=== PATIENT | male | born 1960 | race Caucasian/White ===

== ENCOUNTER 2016-12-03 12:49 | Inpatient (IN) | payer OTHER ==
[~2016-12-03] VITALS: Ht 177.8 cm; Wt 89.4 kg
[~2016-12-03 12:49] MED LIST: FURO40 PO; LACT30L PO; NEOM500T PO; PROP10TA73 PO; SPIR25 PO
[2016-12-03] MEDS ORDERED: PROP10TA73 PO (12:58)
[2016-12-03] MEDS ORDERED: ESOM20CA31 PO (12:58)
[2016-12-03] MEDS ORDERED: CLON.2 PO (12:58)
[2016-12-03] MEDS ORDERED: LACT30L PO (12:58)
[2016-12-03] MEDS ORDERED: RIFAX550 PO (12:58)
[2016-12-03 14:31] LABS: APPEARANCE,URINE CLOUDY (CLEAR); GLUCOSE, URINE (UA) NEGATIVE (NEGATIVE); KETONES,URINE 15 mg/dL (NEGATIVE); LEUKOCYTE ESTERASE ,URINE SMALL (NEGATIVE); OCCULT BLOOD,URINE MODERATE (NEGATIVE); PH,URINE 6.5 (5.0-8.0); PROTEIN,URINE TRACE (NEGATIVE)
[2016-12-03 14:37] LABS: SQUAMOUS EPITHELIAL CELL,UR Few /LPF (None Seen)
[2016-12-03] MEDS ORDERED: SODIUM CHLORIDE 0.9% 1,000 ML IV ONE (14:45)
[2016-12-03 15:44] LABS: AMMONIA 120 umol/L (11-32); TROPONIN I < 0.02 ng/mL (0.00-0.05)
[2016-12-03 15:54] LABS: ANION GAP 10 mmol/L (8-16); CALCIUM, TOTAL 7.8 mg/dL (8.8-10.5); CARBON DIOXIDE 20 mmol/L (22-29); CHLORIDE 110 mmol/L (98-107); CREATININE 0.82 mg/dL (0.60-1.30); GLOMERULAR FILTR. RATE CALC > 60 mL/min (>60); POTASSIUM 4.5 mmol/L (3.5-5.1); SODIUM SERUM 140 mmol/L (136-145); UREA NITROGEN, BLOOD 7 mg/dL (7-18)
[2016-12-03 16:02] LABS: ALANINE AMINOTRANSFERASE 56 U/L (12-78); ALBUMIN 2.2 g/dL (3.4-5.0); ASPARTATE AMINOTRANSFERASE 110 U/L (15-37); BILIRUBIN,TOTAL 4.3 mg/dL (0.1-1.0); CREATINE KINASE, TOTAL 488 U/L (39-308); TOTAL PROTEIN, SERUM 5.9 g/dL (6.4-8.2)
[2016-12-03 16:06] LABS: BASOPHILS % (AUTO) 0.1 % (0.0-2.0); EOSINOPHILS % (AUTO) 0.2 % (1.0-6.0); HEMATOCRIT 37.5 % (41-53); HEMOGLOBIN 12.8 g/dL (13.5-17.5); LYMPHOCYTES # (AUTO) 0.5 K/uL (1.0-4.8); MEAN CORPUSCULAR HEMOGLOBIN 33.9 pg (26.0-34.0); MEAN CORPUSCULAR HGB CONC 34.1 G/dL (31.0-37.0); MEAN CORPUSCULAR VOLUME 99 fL (80-100); MONOCYTES # (AUTO) 0.7 K/uL (0.1-1.0); MONOCYTES % (AUTO) 7.4 % (2.0-9.0); RED BLOOD CELL COUNT(AUTO) 3.77 MIL/uL (4.50-5.90); WHITE BLOOD COUNT (AUTO) 9.2 K/uL (4.5-11.0)
[2016-12-03 16:09] LABS: NEUTROPHILS % (AUTO) 87.3 % (40.0-70.0)
[2016-12-03 16:37] LABS: CREATINE KINASE MB 3.1 ng/mL (0-5)
[2016-12-03 16:38] LABS: PLATELET COUNT (AUTO) 88 K/uL (150-450); RBC MORPHOLOGY COMMENT ABNORMAL RBC MORPH
[2016-12-03] MEDS ORDERED: ACETAMINOPHEN 325 MG TABLET PO PRN (17:15)
[2016-12-03] MEDS ORDERED: 0.9% SODIUM CHLORIDE 10 ML SYRINGE IVP PRN (17:15)
[2016-12-03] MEDS ORDERED: LACTULOSE 200 GM/300 ML RECTAL SOLUTION PR ONE (17:15)
[2016-12-03] MEDS ORDERED: ONDANSETRON HCL 4 MG/2 ML VIAL IVP PRN (17:15)
[2016-12-03] MEDS ORDERED: LACTULOSE 20 GM/30 ML SOLUTION UDCUP PO ONE (17:30)
[2016-12-03] MEDS ORDERED: CloNIDine HCL 0.1 MG TABLET PO PRN (19:15)
[2016-12-03] MEDS ORDERED: LACTULOSE 200 GM/300 ML RECTAL SOLUTION PR SCH (19:15)
[2016-12-03] MEDS ORDERED: ALBUTEROL SULFATE 2.5 MG/0.5 ML NEB SOLUTION NEB PRN (19:15)
[2016-12-03 20:01] LABS: INR 1.7 (0.9-1.1); PROTHROMBIN TIME 17.6 SEC (9.4-11.6)
[2016-12-03 20:31] VITALS: BP 137/91
[2016-12-03] MEDS ORDERED: SODIUM CHLORIDE 0.9% 100 ML ONE (21:54)
[2016-12-03] MEDS ORDERED: SODIUM CHLORIDE 0.9% 0 ML ONE (21:59)
[2016-12-03] MEDS: DOCUSATE SODIUM 100 MG CAPSULE PO SCH (22:06)
[2016-12-03] MEDS: CefTRIAXone 1 GM/DEXTROSE 50 ML IV SCH (22:07)
[2016-12-03 23:36] VITALS: BP 160/82
[2016-12-03] MEDS: LACTULOSE 20 GM/30 ML SOLUTION UDCUP PO SCH (23:43)
[2016-12-04 03:51] VITALS: BP 140/71
[2016-12-04] MEDS: ACETAMINOPHEN 325 MG TABLET PO PRN ×2 (05:49→16:38)
[2016-12-04 06:24] LABS: EOSINOPHILS % (AUTO) 0.7 % (1.0-6.0); HEMOGLOBIN 12.2 g/dL (13.5-17.5); LYMPHOCYTES % (AUTO) 14.2 % (22.0-44.0); MEAN CORPUSCULAR HGB CONC 33.9 G/dL (31.0-37.0); MEAN CORPUSCULAR VOLUME 100 fL (80-100); MONOCYTES # (AUTO) 0.9 K/uL (0.1-1.0); MONOCYTES % (AUTO) 12.2 % (2.0-9.0); NEUTROPHILS # (AUTO) 5.2 K/uL (1.8-7.7); NEUTROPHILS % (AUTO) 72.9 % (40.0-70.0); PLATELET COUNT (AUTO) 88 K/uL (150-450); WHITE BLOOD COUNT (AUTO) 7.1 K/uL (4.5-11.0)
[2016-12-04 07:03] LABS: ALANINE AMINOTRANSFERASE 44 U/L (12-78); ALBUMIN 1.7 g/dL (3.4-5.0); ANION GAP 8 mmol/L (8-16); ASPARTATE AMINOTRANSFERASE 87 U/L (15-37); BILIRUBIN,TOTAL 3.5 mg/dL (0.1-1.0); CALCIUM, TOTAL 7.3 mg/dL (8.8-10.5); CARBON DIOXIDE 22 mmol/L (22-29); CHLORIDE 113 mmol/L (98-107); GLOMERULAR FILTR. RATE CALC > 60 mL/min (>60); POTASSIUM 3.5 mmol/L (3.5-5.1); SODIUM SERUM 143 mmol/L (136-145); TOTAL PROTEIN, SERUM 4.6 g/dL (6.4-8.2); UREA NITROGEN, BLOOD 6 mg/dL (7-18)
[2016-12-04 07:21] VITALS: BP 147/93
[2016-12-04] MEDS: PANTOPRAZOLE SODIUM 40 MG DR TABLET PO SCH (09:17)
[2016-12-04] MEDS: LACTULOSE 20 GM/30 ML SOLUTION UDCUP PO SCH ×3 (09:17→23:42)
[2016-12-04] MEDS: DOCUSATE SODIUM 100 MG CAPSULE PO SCH ×2 (09:17→21:07)
[2016-12-04 09:54] LABS: RBC MORPHOLOGY COMMENT ABNORMAL RBC MORPH
[2016-12-04 11:36] VITALS: BP 137/89
[2016-12-04 16:22] VITALS: BP 143/91
[2016-12-04 19:46] VITALS: BP 147/82
[2016-12-04] MEDS ORDERED: SODIUM CHLORIDE 0.9% 250 ML IV ONE (21:05)
[2016-12-04] MEDS: CefTRIAXone 1 GM/DEXTROSE 50 ML IV SCH (21:07)
[2016-12-04] MEDS: RIFAXIMIN 550 MG TABLET PO SCH (21:07)
[2016-12-04 23:45] VITALS: BP 148/87
[2016-12-05] MEDS ORDERED: VANCOMYCIN HCL 1.5 GM in DEXTROSE 5%-WATER 250 ML IV ONE (00:30)
[2016-12-05] MEDS ORDERED: VANCOMYCIN HCL 1 GM/D5% WATER 200 ML IV ONE (00:30)
[2016-12-05 04:54] VITALS: BP 157/80
[2016-12-05] MEDS ORDERED: VANCOMYCIN HCL 750 MG in DEXTROSE 5%-WATER 150 ML IV ONE (05:00)
[2016-12-05 06:47] LABS: ANION GAP 6 mmol/L (8-16); CALCIUM, TOTAL 7.4 mg/dL (8.8-10.5); CARBON DIOXIDE 25 mmol/L (22-29); CHLORIDE 111 mmol/L (98-107); CREATININE 0.96 mg/dL (0.60-1.30); GLOMERULAR FILTR. RATE CALC > 60 mL/min (>60); POTASSIUM 3.2 mmol/L (3.5-5.1); SODIUM SERUM 142 mmol/L (136-145); UREA NITROGEN, BLOOD 6 mg/dL (7-18)
[2016-12-05 07:56] VITALS: BP 152/83
[2016-12-05] MEDS ORDERED: VANCOMYCIN HCL 1.5 GM in DEXTROSE 5%-WATER 250 ML IV SCH ×2 (08:00→20:00)
[2016-12-05] MEDS: RIFAXIMIN 550 MG TABLET PO SCH (08:13)
[2016-12-05] MEDS: PANTOPRAZOLE SODIUM 40 MG DR TABLET PO SCH (08:13)
[2016-12-05] MEDS: LACTULOSE 20 GM/30 ML SOLUTION UDCUP PO SCH (08:13)
[2016-12-05] MEDS: DOCUSATE SODIUM 100 MG CAPSULE PO SCH (08:15)
[2016-12-05 11:18] LABS: GLUCOSE,POINT OF CARE 95 MG/DL (70-110)
[2016-12-05 11:21] VITALS: BP 150/96
[2016-12-05] MEDS ORDERED: POTASSIUM CHLORIDE 20 MEQ ER TABLET PO ONE (13:15)
== END 2016-12-05 13:45 | disposition left against medical advice (07) | DRG 279 ==
LOC: EDBD 12:56 → EMS 12:56 → 5S 18:08 → 6N 12-04 18:40
PROVIDERS: ADMIT Internal Medicine; ATTEND Internal Medicine
PROC: 05HM33Z Insertion of Infusion Device into Right Internal Jugular Vein, Percutaneous Approach (ICD-10-PCS; principal; 2016-12-03)
DX: K72.90 Hepatic failure, unspecified without coma (principal); E43 Unspecified severe protein-calorie malnutrition; D68.9 Coagulation defect, unspecified; D69.6 Thrombocytopenia, unspecified; K74.60 Unspecified cirrhosis of liver; F19.10 Other psychoactive substance abuse, uncomplicated; F17.210 Nicotine dependence, cigarettes, uncomplicated; Z71.6 Tobacco abuse counseling; Z71.51 Drug abuse counseling and surveillance of drug abuser; Z91.19 Patient's noncompliance with other medical treatment and regimen; Z79.899 Other long term (current) drug therapy; Z68.28 Body mass index [BMI] 28.0-28.9, adult
CPT/HCPCS: 36556; 51702; 70450; 82962; 83605; 87040; 87086; 93005; 93306; 99285; G0480; J0696; J2405; J3370; J7030; J7050; J7060

== ENCOUNTER 2017-01-23 04:23 | Inpatient (IN) | payer OTHER ==
[~2017-01-23] VITALS: Ht 172.7 cm; Wt 97.8 kg
[~2017-01-23 04:23] MED LIST changes: +CLON.2 PO; +ESOM20CA31 PO; +RIFAX550 PO
[2017-01-23 06:45] LABS: BASOPHILS % (AUTO) 1.2 % (0.0-2.0); EOSINOPHILS % (AUTO) 3.8 % (1.0-6.0); HEMATOCRIT 35.9 % (41-53); HEMOGLOBIN 12.4 g/dL (13.5-17.5); LYMPHOCYTES % (AUTO) 27.6 % (22.0-44.0); MEAN CORPUSCULAR HEMOGLOBIN 34.2 pg (26.0-34.0); MEAN CORPUSCULAR HGB CONC 34.4 G/dL (31.0-37.0); MEAN CORPUSCULAR VOLUME 99 fL (80-100); MONOCYTES # (AUTO) 0.8 K/uL (0.1-1.0); NEUTROPHILS % (AUTO) 56.4 % (40.0-70.0); PLATELET COUNT (AUTO) 114 K/uL (150-450); RED BLOOD CELL COUNT(AUTO) 3.62 MIL/uL (4.50-5.90); RED CELL DISTRIBUTION WIDTH 18.4 % (11.5-14.5); WHITE BLOOD COUNT (AUTO) 7.2 K/uL (4.5-11.0)
[2017-01-23 06:47] LABS: RBC MORPHOLOGY COMMENT ABNORMAL RBC MORPH
[2017-01-23 06:50] LABS: ANION GAP 9 mmol/L (8-16); CALCIUM, TOTAL 7.7 mg/dL (8.8-10.5); CARBON DIOXIDE 20 mmol/L (22-29); CHLORIDE 113 mmol/L (98-107); CREATININE 0.96 mg/dL (0.60-1.30); GLOMERULAR FILTR. RATE CALC > 60 mL/min (>60); POTASSIUM 3.6 mmol/L (3.5-5.1); SODIUM SERUM 142 mmol/L (136-145); UREA NITROGEN, BLOOD 6 mg/dL (7-18)
[2017-01-23 06:58] LABS: ALANINE AMINOTRANSFERASE 61 U/L (12-78); ALBUMIN 1.8 g/dL (3.4-5.0); ASPARTATE AMINOTRANSFERASE 95 U/L (15-37); BILIRUBIN,TOTAL 2.6 mg/dL (0.1-1.0); TOTAL PROTEIN, SERUM 5.4 g/dL (6.4-8.2); TROPONIN I 0.03 ng/mL (0.00-0.05)
[2017-01-23 07:32] LABS: INR 1.5 (0.9-1.1); PROTHROMBIN TIME 16.1 SEC (9.4-11.6)
[2017-01-23] MEDS ORDERED: LACTULOSE 20 GM/30 ML SOLUTION UDCUP PO ONE (08:00)
[2017-01-23] MEDS ORDERED: 0.9% SODIUM CHLORIDE 10 ML SYRINGE IVP PRN (08:30)
[2017-01-23] MEDS ORDERED: ONDANSETRON HCL 4 MG/2 ML VIAL IVP PRN ×2 (08:30→23:30)
[2017-01-23] MEDS ORDERED: ACETAMINOPHEN 325 MG TABLET PO PRN ×2 (08:30→23:30)
[2017-01-23 09:37] VITALS: BP 129/90
[2017-01-23 11:11] VITALS: BP 151/89
[2017-01-23 15:19] VITALS: BP 161/99
[2017-01-23] MEDS ORDERED: PNEUMOCOCCAL VACCINE POLYVALENT 0.5 ML VIAL [PPSV23] IM ONE (17:15)
[2017-01-23] MEDS ORDERED: INFLUENZA VIRUS VACCINE QVS 2017-18 (3YR+)/PF 60 MCG/0.5 ML SYRINGE IM ONE (17:15)
[2017-01-23 19:52] VITALS: BP 159/92
[2017-01-23] MEDS ORDERED: MAGNESIUM HYDROXIDE SUSPENSION 30 ML UDCUP PO PRN (23:30)
[2017-01-23] MEDS ORDERED: BISACODYL 10 MG RECTAL RECTAL SUPPOSITORY PR PRN (23:30)
[2017-01-23] MEDS ORDERED: ZOLPIDEM TARTRATE 5 MG TABLET PO PRN (23:30)
[2017-01-23] MEDS ORDERED: MORPHINE SULFATE 2 MG/ML SYRINGE IVP PRN (23:30)
[2017-01-23] MEDS ORDERED: ALBUTEROL SULFATE 2.5 MG/0.5 ML NEB SOLUTION NEB PRN (23:30)
[2017-01-23] MEDS ORDERED: IPRATROPIUM BROMIDE 0.5 MG/2.5 ML NEB SOLUTION NEB PRN (23:30)
[2017-01-23 23:44] VITALS: BP 135/68
[2017-01-24 04:22] LABS: APPEARANCE,URINE CLEAR (CLEAR); GLUCOSE, URINE (UA) NEGATIVE (NEGATIVE); KETONES,URINE NEGATIVE (NEGATIVE); LEUKOCYTE ESTERASE ,URINE NEGATIVE (NEGATIVE); OCCULT BLOOD,URINE TRACE (NEGATIVE); PROTEIN,URINE NEGATIVE (NEGATIVE)
[2017-01-24 04:24] LABS: ADD UA MICROSCOPIC YES
[2017-01-24 04:38] LABS: SQUAMOUS EPITHELIAL CELL,UR Few /LPF (None Seen)
[2017-01-24 05:08] VITALS: BP 136/89
[2017-01-24 07:19] VITALS: BP 136/72
[2017-01-24] MEDS: FUROSEMIDE 40 MG TABLET PO SCH (08:23)
[2017-01-24] MEDS: PANTOPRAZOLE SODIUM 40 MG/VIAL IVP SCH (08:24)
[2017-01-24] MEDS: SPIRONOLACTONE 25 MG TABLET PO SCH (08:24)
[2017-01-24] MEDS: DOCUSATE SODIUM 100 MG CAPSULE PO SCH ×2 (08:24→20:32)
[2017-01-24] MEDS: CloNIDine HCL 0.2 MG TABLET PO SCH ×2 (08:25→20:34)
[2017-01-24] MEDS: LACTULOSE 20 GM/30 ML SOLUTION UDCUP PO SCH ×4 (08:25→20:35)
[2017-01-24] MEDS: RIFAXIMIN 550 MG TABLET PO SCH ×2 (08:26→20:32)
[2017-01-24] MEDS: NEOMYCIN SULFATE 500 MG TABLET PO SCH ×3 (08:26→20:33)
[2017-01-24] MEDS: PROPRANOLOL HCL 10 MG TABLET PO SCH ×3 (08:27→20:34)
[2017-01-24 11:09] VITALS: BP 113/64
[2017-01-24 17:11] VITALS: BP 122/75
[2017-01-24 19:31] VITALS: BP 142/83
[2017-01-24] MEDS: HYDROCODONE/ACETAMINOPHEN 5-325 MG TABLET PO PRN (20:36)
[2017-01-25] VITALS (9 sets, daily range): BP systolic 100–139; BP diastolic 56–86
[2017-01-25] MEDS: CloNIDine HCL 0.2 MG TABLET PO SCH ×2 (07:56→21:01)
[2017-01-25] MEDS: PANTOPRAZOLE SODIUM 40 MG/VIAL IVP SCH (08:12)
[2017-01-25] MEDS: SPIRONOLACTONE 25 MG TABLET PO SCH (08:13)
[2017-01-25] MEDS: DOCUSATE SODIUM 100 MG CAPSULE PO SCH ×2 (08:14→21:00)
[2017-01-25] MEDS: LACTULOSE 20 GM/30 ML SOLUTION UDCUP PO SCH ×4 (08:14→21:01)
[2017-01-25] MEDS: RIFAXIMIN 550 MG TABLET PO SCH ×2 (08:14→21:02)
[2017-01-25] MEDS: FUROSEMIDE 40 MG TABLET PO SCH (08:14)
[2017-01-25] MEDS: PROPRANOLOL HCL 10 MG TABLET PO SCH ×3 (08:15→21:02)
[2017-01-25] MEDS: NEOMYCIN SULFATE 500 MG TABLET PO SCH ×3 (08:15→21:02)
[2017-01-25 10:02] LABS: BASOPHILS # (AUTO) 0.07 K/uL (0.00-0.20); BASOPHILS % (AUTO) 1.1 % (0.0-2.0); EOSINOPHILS # (AUTO) 0.27 K/uL (0.00-0.70); EOSINOPHILS % (AUTO) 4.28 % (1.0-6.0); HEMATOCRIT 33.9 % (41-53); HEMOGLOBIN 11.3 g/dL (13.5-17.5); LYMPHOCYTES # (AUTO) 1.8 K/uL (1.0-4.8); LYMPHOCYTES % (AUTO) 28.4 % (22.0-44.0); MEAN CORPUSCULAR HEMOGLOBIN 33.5 pg (26.0-34.0); MEAN CORPUSCULAR HGB CONC 33.3 G/dL (31.0-37.0); MEAN CORPUSCULAR VOLUME 100 fL (80-100); MONOCYTES % (AUTO) 15.9 % (2.0-9.0); NEUTROPHILS # (AUTO) 3.2 K/uL (1.8-7.7); NEUTROPHILS % (AUTO) 50.4 % (40.0-70.0); PLATELET COUNT (AUTO) 102 K/uL (150-450); RED BLOOD CELL COUNT(AUTO) 3.38 MIL/uL (4.50-5.90); RED CELL DISTRIBUTION WIDTH 18.3 % (11.5-14.5); WHITE BLOOD COUNT (AUTO) 6.3 K/uL (4.5-11.0)
[2017-01-25 10:14] LABS: ANION GAP 6 mmol/L (8-16); CALCIUM, TOTAL 7.8 mg/dL (8.8-10.5); CARBON DIOXIDE 24 mmol/L (22-29); CHLORIDE 110 mmol/L (98-107); GLOMERULAR FILTR. RATE CALC > 60 mL/min (>60); POTASSIUM 3.6 mmol/L (3.5-5.1); SODIUM SERUM 140 mmol/L (136-145); UREA NITROGEN, BLOOD 6 mg/dL (7-18)
[2017-01-25 10:20] LABS: ALANINE AMINOTRANSFERASE 50 U/L (12-78); ALBUMIN 1.5 g/dL (3.4-5.0); ASPARTATE AMINOTRANSFERASE 81 U/L (15-37); BILIRUBIN,TOTAL 2.5 mg/dL (0.1-1.0); TOTAL PROTEIN, SERUM 4.8 g/dL (6.4-8.2)
[2017-01-25 10:41] LABS: RBC MORPHOLOGY COMMENT ABNORMAL RBC MORPH
[2017-01-26 00:04] VITALS: BP 109/59
[2017-01-26 04:30] VITALS: BP 113/72
[2017-01-26 06:07] LABS: ALANINE AMINOTRANSFERASE 47 U/L (12-78); ALBUMIN 1.4 g/dL (3.4-5.0); ANION GAP 6 mmol/L (8-16); ASPARTATE AMINOTRANSFERASE 81 U/L (15-37); BILIRUBIN,TOTAL 2.3 mg/dL (0.1-1.0); CALCIUM, TOTAL 7.6 mg/dL (8.8-10.5); CARBON DIOXIDE 24 mmol/L (22-29); CHLORIDE 110 mmol/L (98-107); CREATININE 1.09 mg/dL (0.60-1.30); GLOMERULAR FILTR. RATE CALC > 60 mL/min (>60); POTASSIUM 3.8 mmol/L (3.5-5.1); SODIUM SERUM 140 mmol/L (136-145); TOTAL PROTEIN, SERUM 4.7 g/dL (6.4-8.2); UREA NITROGEN, BLOOD 6 mg/dL (7-18)
[2017-01-26 07:22] VITALS: BP 112/56
[2017-01-26] MEDS: RIFAXIMIN 550 MG TABLET PO SCH (08:15)
[2017-01-26] MEDS: NEOMYCIN SULFATE 500 MG TABLET PO SCH ×2 (08:15→15:49)
[2017-01-26] MEDS: DOCUSATE SODIUM 100 MG CAPSULE PO SCH (08:15)
[2017-01-26] MEDS: PANTOPRAZOLE SODIUM 40 MG/VIAL IVP SCH (08:16)
[2017-01-26] MEDS: LACTULOSE 20 GM/30 ML SOLUTION UDCUP PO SCH ×3 (08:16→15:50)
[2017-01-26] MEDS: SPIRONOLACTONE 25 MG TABLET PO SCH (08:16)
[2017-01-26] MEDS: PROPRANOLOL HCL 10 MG TABLET PO SCH ×2 (08:17→15:50)
[2017-01-26 09:28] LABS: BASOPHILS # (AUTO) 0.06 K/uL (0.00-0.20); BASOPHILS % (AUTO) 0.9 % (0.0-2.0); EOSINOPHILS # (AUTO) 0.31 K/uL (0.00-0.70); EOSINOPHILS % (AUTO) 5.07 % (1.0-6.0); HEMATOCRIT 33.4 % (41-53); HEMOGLOBIN 11.1 g/dL (13.5-17.5); LYMPHOCYTES # (AUTO) 1.6 K/uL (1.0-4.8); LYMPHOCYTES % (AUTO) 26.4 % (22.0-44.0); MEAN CORPUSCULAR HEMOGLOBIN 33.8 pg (26.0-34.0); MEAN CORPUSCULAR HGB CONC 33.3 G/dL (31.0-37.0); MEAN CORPUSCULAR VOLUME 101 fL (80-100); MONOCYTES # (AUTO) 0.9 K/uL (0.1-1.0); MONOCYTES % (AUTO) 14.8 % (2.0-9.0); NEUTROPHILS # (AUTO) 3.3 K/uL (1.8-7.7); NEUTROPHILS % (AUTO) 52.8 % (40.0-70.0); PLATELET COUNT (AUTO) 95 K/uL (150-450); RED CELL DISTRIBUTION WIDTH 19.3 % (11.5-14.5); WHITE BLOOD COUNT (AUTO) 6.2 K/uL (4.5-11.0)
[2017-01-26] MEDS: CloNIDine HCL 0.2 MG TABLET PO SCH (09:49)
[2017-01-26] MEDS: FUROSEMIDE 40 MG TABLET PO SCH (09:49)
[2017-01-26 09:50] VITALS: BP 130/67
[2017-01-26 11:08] VITALS: BP 117/68
[2017-01-26 15:24] VITALS: BP 122/66
[2017-01-26] MEDS: HYDROCODONE/ACETAMINOPHEN 5-325 MG TABLET PO PRN (15:50)
== END 2017-01-26 17:30 | disposition home or self-care (01) | DRG 279 ==
LOC: EMS 04:24 → 5S 08:30
PROVIDERS: ADMIT Hospitalist; ATTEND Hospitalist
DX: K72.90 Hepatic failure, unspecified without coma (principal); E43 Unspecified severe protein-calorie malnutrition; D69.6 Thrombocytopenia, unspecified; I10 Essential (primary) hypertension; K74.60 Unspecified cirrhosis of liver; F17.210 Nicotine dependence, cigarettes, uncomplicated; Z28.21 Immunization not carried out because of patient refusal
CPT/HCPCS: 93005; 99285; C9113; J2270

== ENCOUNTER 2017-03-02 01:18 | Inpatient (IN) | payer OTHER ==
[~2017-03-02] VITALS: Ht 172.7 cm; Wt 96.4 kg
[2017-03-02] MEDS ORDERED: BUMETANIDE 0.25 MG/ML 4 ML VIAL IVP ONE (04:00)
[2017-03-02 04:08] LABS: ANION GAP 3 mmol/L (8-16); CARBON DIOXIDE 28 mmol/L (22-29); CHLORIDE 107 mmol/L (98-107); CREATININE 0.93 mg/dL (0.60-1.30); GLOMERULAR FILTR. RATE CALC > 60 mL/min (>60); GLUCOSE,RANDOM 151 mg/dL (70-110); POTASSIUM 4.4 mmol/L (3.5-5.1); SODIUM SERUM 138 mmol/L (136-145); UREA NITROGEN, BLOOD 16 mg/dL (7-18)
[2017-03-02 04:14] LABS: ALANINE AMINOTRANSFERASE 68 U/L (12-78); ALBUMIN 1.3 g/dL (3.4-5.0); ALKALINE PHOSPHATASE 197 U/L (46-116); ASPARTATE AMINOTRANSFERASE 157 U/L (15-37); BILIRUBIN,TOTAL 1.8 mg/dL (0.1-1.0); TOTAL PROTEIN, SERUM 4.5 g/dL (6.4-8.2)
[2017-03-02 04:28] LABS: BASOPHILS # (AUTO) 0.05 K/uL (0.00-0.20); EOSINOPHILS % (AUTO) 5.44 % (1.0-6.0); HEMATOCRIT 29.2 % (41-53); HEMOGLOBIN 9.7 g/dL (13.5-17.5); LYMPHOCYTES # (AUTO) 1.8 K/uL (1.0-4.8); MEAN CORPUSCULAR HEMOGLOBIN 33.6 pg (26.0-34.0); MEAN CORPUSCULAR HGB CONC 33.2 G/dL (31.0-37.0); MEAN CORPUSCULAR VOLUME 101 fL (80-100); MONOCYTES # (AUTO) 0.7 K/uL (0.1-1.0); MONOCYTES % (AUTO) 13.4 % (2.0-9.0); NEUTROPHILS # (AUTO) 2.6 K/uL (1.8-7.7); NEUTROPHILS % (AUTO) 47.2 % (40.0-70.0); RED BLOOD CELL COUNT(AUTO) 2.88 MIL/uL (4.50-5.90); RED CELL DISTRIBUTION WIDTH 18.9 % (11.5-14.5)
[2017-03-02 04:40] LABS: INR 1.5 (0.9-1.1); PROTHROMBIN TIME 15.7 SEC (9.4-11.6)
[2017-03-02 04:52] LABS: TROPONIN I 0.03 ng/mL (0.00-0.05)
[2017-03-02 04:59] LABS: PLATELET COUNT (AUTO) 81 K/uL (150-450); PLATELET MORPHOLOGY COMMENT LARGE PLTS PRESENT
[2017-03-02] MEDS ORDERED: 0.9% SODIUM CHLORIDE 10 ML SYRINGE IVP PRN (06:30)
[2017-03-02] MEDS ORDERED: ACETAMINOPHEN 325 MG TABLET PO PRN (06:30)
[2017-03-02] MEDS ORDERED: MORPHINE SULFATE 4 MG/ML SYRINGE IVP PRN (06:30)
[2017-03-02] MEDS ORDERED: HYDROCODONE/ACETAMINOPHEN 5-325 MG TABLET PO PRN (06:30)
[2017-03-02] MEDS: LACTULOSE 20 GM/30 ML SOLUTION UDCUP PO SCH ×3 (07:40→21:03)
[2017-03-02 08:29] VITALS: BP 121/78
[2017-03-02] MEDS ORDERED: RIFAXIMIN 550 MG TABLET PO SCH (09:00)
[2017-03-02] MEDS ORDERED: SPIRONOLACTONE 50 MG TABLET PO SCH (09:00)
[2017-03-02] MEDS ORDERED: ENOXAPARIN SODIUM 40 MG/0.4 ML PF SYRINGE SQ SCH (09:00)
[2017-03-02] MEDS ORDERED: BUMETANIDE 0.25 MG/ML 4 ML VIAL IVP SCH (09:00)
[2017-03-02] MEDS ORDERED: PANTOPRAZOLE SODIUM 40 MG DR TABLET PO SCH (09:00)
[2017-03-02] MEDS ORDERED: CloNIDine HCL 0.1 MG TABLET PO SCH (09:00)
[2017-03-02] MEDS: PROPRANOLOL HCL 10 MG TABLET PO SCH ×3 (09:13→21:04)
[2017-03-02] MEDS: NEOMYCIN SULFATE 500 MG TABLET PO SCH ×3 (09:13→21:23)
[2017-03-02] MEDS ORDERED: INFLUENZA VIRUS VACCINE QVS 2017-18 (3YR+)/PF 60 MCG/0.5 ML SYRINGE IM ONE (11:00)
[2017-03-02 11:25] VITALS: BP 123/64
[2017-03-02 15:32] VITALS: BP 117/72
[2017-03-02 19:13] VITALS: BP 109/72
[2017-03-02] MEDS ORDERED: ONDANSETRON HCL 4 MG/2 ML VIAL IVP PRN (20:00)
[2017-03-02] MEDS: ALBUTEROL SULFATE 2.5 MG/0.5 ML NEB SOLUTION NEB SCH (21:00)
[2017-03-02] MEDS: IPRATROPIUM BROMIDE 0.5 MG/2.5 ML NEB SOLUTION NEB SCH (21:00)
[2017-03-02] MEDS: RIFAXIMIN 550 MG TABLET PO SCH (21:04)
[2017-03-02] MEDS: CloNIDine HCL 0.2 MG TABLET PO SCH (21:22)
[2017-03-02 23:14] VITALS: BP 114/72
[2017-03-03] MEDS: ALBUMIN HUMAN 25%-25GM/100ML 100 ML IV SCH (00:25)
[2017-03-03 05:12] VITALS: BP 100/59
[2017-03-03 07:06] VITALS: BP 107/70
[2017-03-03 07:57] LABS: BASOPHILS % (AUTO) 0.7 % (0.0-2.0); EOSINOPHILS % (AUTO) 4.6 % (1.0-6.0); HEMATOCRIT 28.6 % (41-53); HEMOGLOBIN 9.7 g/dL (13.5-17.5); LYMPHOCYTES # (AUTO) 1.5 K/uL (1.0-4.8); LYMPHOCYTES % (AUTO) 37.7 % (22.0-44.0); MEAN CORPUSCULAR HEMOGLOBIN 33.9 pg (26.0-34.0); MEAN CORPUSCULAR HGB CONC 33.8 G/dL (31.0-37.0); MEAN CORPUSCULAR VOLUME 100 fL (80-100); MONOCYTES # (AUTO) 0.7 K/uL (0.1-1.0); MONOCYTES % (AUTO) 16.5 % (2.0-9.0); NEUTROPHILS # (AUTO) 1.6 K/uL (1.8-7.7); NEUTROPHILS % (AUTO) 40.5 % (40.0-70.0); PLATELET COUNT (AUTO) 90 K/uL (150-450); RED BLOOD CELL COUNT(AUTO) 2.85 MIL/uL (4.50-5.90); RED CELL DISTRIBUTION WIDTH 19.3 % (11.5-14.5)
[2017-03-03 08:09] LABS: ALANINE AMINOTRANSFERASE 60 U/L (12-78); ALBUMIN 1.5 g/dL (3.4-5.0); ALKALINE PHOSPHATASE 205 U/L (46-116); ANION GAP 4 mmol/L (8-16); ASPARTATE AMINOTRANSFERASE 132 U/L (15-37); CALCIUM, TOTAL 7.2 mg/dL (8.8-10.5); CARBON DIOXIDE 27 mmol/L (22-29); CHLORIDE 108 mmol/L (98-107); CREATININE 0.88 mg/dL (0.60-1.30); GLOMERULAR FILTR. RATE CALC > 60 mL/min (>60); GLUCOSE,RANDOM 118 mg/dL (70-110); POTASSIUM 3.6 mmol/L (3.5-5.1); SODIUM SERUM 139 mmol/L (136-145); TOTAL PROTEIN, SERUM 4.5 g/dL (6.4-8.2); UREA NITROGEN, BLOOD 11 mg/dL (7-18)
[2017-03-03] MEDS: CloNIDine HCL 0.2 MG TABLET PO SCH ×2 (09:05→21:00)
[2017-03-03] MEDS: FUROSEMIDE 40 MG TABLET PO SCH (09:05)
[2017-03-03] MEDS: SPIRONOLACTONE 25 MG TABLET PO SCH (09:05)
[2017-03-03] MEDS: LACTULOSE 20 GM/30 ML SOLUTION UDCUP PO SCH ×3 (09:06→20:51)
[2017-03-03] MEDS: PROPRANOLOL HCL 10 MG TABLET PO SCH ×3 (09:06→20:51)
[2017-03-03] MEDS: PANTOPRAZOLE SODIUM 40 MG DR TABLET PO SCH (09:06)
[2017-03-03] MEDS: NEOMYCIN SULFATE 500 MG TABLET PO SCH ×3 (09:07→20:51)
[2017-03-03] MEDS: RIFAXIMIN 550 MG TABLET PO SCH ×2 (09:07→20:51)
[2017-03-03] MEDS: IPRATROPIUM BROMIDE 0.5 MG/2.5 ML NEB SOLUTION NEB SCH ×4 (10:47→19:45)
[2017-03-03] MEDS: ALBUTEROL SULFATE 2.5 MG/0.5 ML NEB SOLUTION NEB SCH ×4 (10:47→19:45)
[2017-03-03 12:01] VITALS: BP 106/63
[2017-03-03 16:35] VITALS: BP 102/56
[2017-03-03 19:50] VITALS: BP 110/68
[2017-03-03 23:47] VITALS: BP 107/61
[2017-03-04] MEDS ORDERED: SODIUM CHLORIDE 0.9% 250 ML IV ONE (00:36)
[2017-03-04] MEDS: ALBUMIN HUMAN 25%-25GM/100ML 100 ML IV SCH (00:58)
[2017-03-04 03:01] VITALS: BP 101/61
[2017-03-04 07:58] VITALS: BP 101/56
[2017-03-04] MEDS: ALBUTEROL SULFATE 2.5 MG/0.5 ML NEB SOLUTION NEB SCH ×4 (08:06→20:17)
[2017-03-04] MEDS: IPRATROPIUM BROMIDE 0.5 MG/2.5 ML NEB SOLUTION NEB SCH ×4 (08:06→20:17)
[2017-03-04] MEDS: LACTULOSE 20 GM/30 ML SOLUTION UDCUP PO SCH ×3 (08:15→20:56)
[2017-03-04] MEDS: SPIRONOLACTONE 25 MG TABLET PO SCH (08:15)
[2017-03-04] MEDS: PROPRANOLOL HCL 10 MG TABLET PO SCH ×3 (08:16→20:56)
[2017-03-04] MEDS: RIFAXIMIN 550 MG TABLET PO SCH ×2 (08:16→20:56)
[2017-03-04] MEDS: FUROSEMIDE 40 MG TABLET PO SCH (08:16)
[2017-03-04] MEDS: NEOMYCIN SULFATE 500 MG TABLET PO SCH ×3 (08:16→20:56)
[2017-03-04] MEDS: PANTOPRAZOLE SODIUM 40 MG DR TABLET PO SCH (08:16)
[2017-03-04] MEDS: CloNIDine HCL 0.2 MG TABLET PO SCH ×2 (08:16→21:00)
[2017-03-04 11:37] VITALS: BP 114/69
[2017-03-04 15:48] VITALS: BP 108/65
[2017-03-04 20:14] VITALS: BP 108/61
[2017-03-04 23:52] VITALS: BP 122/71
[2017-03-05] MEDS: ALBUMIN HUMAN 25%-25GM/100ML 100 ML IV SCH ×2 (01:14→23:41)
[2017-03-05 05:00] VITALS: BP 115/68
[2017-03-05] MEDS: LACTULOSE 20 GM/30 ML SOLUTION UDCUP PO SCH ×3 (07:58→20:06)
[2017-03-05] MEDS: RIFAXIMIN 550 MG TABLET PO SCH ×2 (07:58→20:06)
[2017-03-05] MEDS: NEOMYCIN SULFATE 500 MG TABLET PO SCH ×3 (07:58→20:06)
[2017-03-05] MEDS: CloNIDine HCL 0.2 MG TABLET PO SCH ×2 (07:59→20:06)
[2017-03-05] MEDS: FUROSEMIDE 40 MG TABLET PO SCH (07:59)
[2017-03-05] MEDS: PROPRANOLOL HCL 10 MG TABLET PO SCH ×3 (07:59→20:10)
[2017-03-05] MEDS: PANTOPRAZOLE SODIUM 40 MG DR TABLET PO SCH (07:59)
[2017-03-05 08:00] VITALS: BP 114/59
[2017-03-05] MEDS: SPIRONOLACTONE 25 MG TABLET PO SCH (08:01)
[2017-03-05] MEDS: ALBUTEROL SULFATE 2.5 MG/0.5 ML NEB SOLUTION NEB SCH ×4 (09:59→20:58)
[2017-03-05] MEDS: IPRATROPIUM BROMIDE 0.5 MG/2.5 ML NEB SOLUTION NEB SCH ×4 (09:59→20:58)
[2017-03-05 10:53] LABS: ANION GAP 6 mmol/L (8-16); CALCIUM, TOTAL 7.3 mg/dL (8.8-10.5); CARBON DIOXIDE 22 mmol/L (22-29); CHLORIDE 109 mmol/L (98-107); CREATININE 0.89 mg/dL (0.60-1.30); GLOMERULAR FILTR. RATE CALC > 60 mL/min (>60); GLUCOSE,RANDOM 138 mg/dL (70-110); POTASSIUM 4.1 mmol/L (3.5-5.1); SODIUM SERUM 137 mmol/L (136-145); UREA NITROGEN, BLOOD 12 mg/dL (7-18)
[2017-03-05 10:55] LABS: BASOPHILS % (AUTO) 0.6 % (0.0-2.0); EOSINOPHILS % (AUTO) 2.5 % (1.0-6.0); HEMATOCRIT 26.6 % (41-53); HEMOGLOBIN 8.9 g/dL (13.5-17.5); LYMPHOCYTES # (AUTO) 1.1 K/uL (1.0-4.8); LYMPHOCYTES % (AUTO) 31.2 % (22.0-44.0); MEAN CORPUSCULAR HGB CONC 33.4 G/dL (31.0-37.0); MEAN CORPUSCULAR VOLUME 102 fL (80-100); MONOCYTES # (AUTO) 0.6 K/uL (0.1-1.0); MONOCYTES % (AUTO) 18.6 % (2.0-9.0); NEUTROPHILS # (AUTO) 1.6 K/uL (1.8-7.7); NEUTROPHILS % (AUTO) 47.1 % (40.0-70.0); PLATELET COUNT (AUTO) 81 K/uL (150-450); RED BLOOD CELL COUNT(AUTO) 2.62 MIL/uL (4.50-5.90)
[2017-03-05 12:25] VITALS: BP 98/62
[2017-03-05 12:51] VITALS: BP 111/66
[2017-03-05 16:02] VITALS: BP 100/59
[2017-03-05 20:29] VITALS: BP 113/63
[2017-03-06 00:31] VITALS: BP 117/70
[2017-03-06 05:19] VITALS: BP 102/63
[2017-03-06 07:11] VITALS: BP 109/65
[2017-03-06] MEDS: ALBUTEROL SULFATE 2.5 MG/0.5 ML NEB SOLUTION NEB SCH ×3 (08:08→16:36)
[2017-03-06] MEDS: IPRATROPIUM BROMIDE 0.5 MG/2.5 ML NEB SOLUTION NEB SCH ×3 (08:08→16:36)
[2017-03-06] MEDS: LACTULOSE 20 GM/30 ML SOLUTION UDCUP PO SCH ×2 (08:43→16:12)
[2017-03-06] MEDS: RIFAXIMIN 550 MG TABLET PO SCH (08:43)
[2017-03-06] MEDS: PROPRANOLOL HCL 10 MG TABLET PO SCH ×2 (08:43→16:12)
[2017-03-06] MEDS: CloNIDine HCL 0.2 MG TABLET PO SCH (08:43)
[2017-03-06] MEDS: FUROSEMIDE 40 MG TABLET PO SCH (08:44)
[2017-03-06] MEDS: SPIRONOLACTONE 25 MG TABLET PO SCH (08:44)
[2017-03-06] MEDS: NEOMYCIN SULFATE 500 MG TABLET PO SCH ×2 (08:44→16:13)
[2017-03-06] MEDS: PANTOPRAZOLE SODIUM 40 MG DR TABLET PO SCH (08:44)
[2017-03-06 11:56] VITALS: BP 90/58
== END 2017-03-06 17:10 | disposition home or self-care (01) | DRG 280 ==
LOC: EMS 01:19 → 6N 05:00
PROVIDERS: ADMIT Internal Medicine; ATTEND Internal Medicine
PROC: 3E0234Z Introduction of Serum, Toxoid and Vaccine into Muscle, Percutaneous Approach (ICD-10-PCS; principal; 2017-03-02)
DX: K72.10 Chronic hepatic failure without coma (principal); K70.30 Alcoholic cirrhosis of liver without ascites; I42.9 Cardiomyopathy, unspecified; D69.59 Other secondary thrombocytopenia; I50.9 Heart failure, unspecified; E88.09 Other disorders of plasma-protein metabolism, not elsewhere classified; B19.20 Unspecified viral hepatitis C without hepatic coma; D63.8 Anemia in other chronic diseases classified elsewhere; F17.210 Nicotine dependence, cigarettes, uncomplicated; Z91.19 Patient's noncompliance with other medical treatment and regimen; Z23 Encounter for immunization; Z79.899 Other long term (current) drug therapy
CPT/HCPCS: 93005; 94640; 96374; 97161; 97165; 97530; 99285; J1650; J3490; J7050; P9046

== ENCOUNTER 2017-04-09 21:52 | Emergency (ER) | payer OTHER ==
[~2017-04-09] VITALS: Ht 172.7 cm; Wt 90.9 kg
[~2017-04-09 21:52] MED LIST changes: -CLON.2 PO; -NEOM500T PO; -RIFAX550 PO; -SPIR25 PO
[2017-04-09 22:13] LABS: GLUCOSE,POINT OF CARE 92 MG/DL (70-110)
[2017-04-09 23:07] LABS: BASOPHILS % (AUTO) 1.3 % (0.0-2.0); EOSINOPHILS % (AUTO) 7.1 % (1.0-6.0); HEMATOCRIT 35.2 % (41-53); HEMOGLOBIN 11.7 g/dL (13.5-17.5); LYMPHOCYTES # (AUTO) 1.9 K/uL (1.0-4.8); LYMPHOCYTES % (AUTO) 34.1 % (22.0-44.0); MEAN CORPUSCULAR HEMOGLOBIN 31.2 pg (26.0-34.0); MEAN CORPUSCULAR HGB CONC 33.3 G/dL (31.0-37.0); MEAN CORPUSCULAR VOLUME 94 fL (80-100); MONOCYTES # (AUTO) 0.5 K/uL (0.1-1.0); MONOCYTES % (AUTO) 9.4 % (2.0-9.0); NEUTROPHILS # (AUTO) 2.7 K/uL (1.8-7.7); NEUTROPHILS % (AUTO) 48.1 % (40.0-70.0); PLATELET COUNT (AUTO) 102 K/uL (150-450); RED BLOOD CELL COUNT(AUTO) 3.76 MIL/uL (4.50-5.90); RED CELL DISTRIBUTION WIDTH 18.6 % (11.5-14.5)
[2017-04-09 23:18] LABS: ANION GAP 9 mmol/L (8-16); CARBON DIOXIDE 19 mmol/L (22-29); CHLORIDE 113 mmol/L (98-107); CREATININE 0.84 mg/dL (0.60-1.30); GLOMERULAR FILTR. RATE CALC > 60 mL/min (>60); GLUCOSE,RANDOM 140 mg/dL (70-110); POTASSIUM 4.2 mmol/L (3.5-5.1); SODIUM SERUM 141 mmol/L (136-145); UREA NITROGEN, BLOOD 10 mg/dL (7-18)
[2017-04-09 23:19] LABS: INR 1.5 (0.9-1.1); PROTHROMBIN TIME 15.2 SEC (9.4-11.6)
[2017-04-09 23:27] LABS: TROPONIN I 0.02 ng/mL (0.00-0.05)
[2017-04-09 23:28] LABS: B-TYPE NATRIURETIC PEPTIDE 45 pg/mL (0-100)
[2017-04-09 23:42] LABS: ALANINE AMINOTRANSFERASE 63 U/L (12-78); ALKALINE PHOSPHATASE 352 U/L (46-116); ASPARTATE AMINOTRANSFERASE 98 U/L (15-37); BILIRUBIN,TOTAL 1.6 mg/dL (0.1-1.0); CREATINE KINASE MB 3.4 ng/mL (0-5); CREATINE KINASE, TOTAL 252 U/L (39-308); TOTAL PROTEIN, SERUM 5.7 g/dL (6.4-8.2)
[2017-04-10] MEDS ORDERED: LACTULOSE 20 GM/30 ML SOLUTION UDCUP PO ONE (00:15)
[2017-04-10 02:26] LABS: APPEARANCE,URINE CLEAR (CLEAR); BILIRUBIN,URINE NEGATIVE (NEGATIVE); GLUCOSE, URINE (UA) NEGATIVE (NEGATIVE); KETONES,URINE NEGATIVE (NEGATIVE); LEUKOCYTE ESTERASE ,URINE NEGATIVE (NEGATIVE); NITRATE,URINE NEGATIVE (NEGATIVE); OCCULT BLOOD,URINE NEGATIVE (NEGATIVE); PROTEIN,URINE NEGATIVE (NEGATIVE); UROBILINOGEN,URINE 0.2 mg/dL (<=1.0)
[2017-04-10 02:31] LABS: AMPHET/METH SCREEN,URINE POSITIVE (NEGATIVE); BARBITURATE SCREEN, URINE NEGATIVE (NEGATIVE); BENZODIAZEPINES SCREEN,URINE NEGATIVE (NEGATIVE); CANNABINOID SCREEN,URINE NEGATIVE (NEGATIVE); COCAINE SCREEN,URINE NEGATIVE (NEGATIVE); METHADONE SCREEN, URINE NEGATIVE (NEGATIVE); OPIATE SCREEN,URINE NEGATIVE (NEGATIVE)
[2017-04-10 02:42] LABS: PHENCYCLIDINE SCREEN,URINE NEGATIVE (NEGATIVE)
[2017-04-10 05:07] VITALS: BP 149/87
== END 2017-04-10 05:09 | disposition short-term general hospital (02) ==
LOC: EMS 21:53
DX: S02.40CA Maxillary fracture, right side, initial encounter for closed fracture (principal); S02.31XA Fracture of orbital floor, right side, initial encounter for closed fracture; K72.90 Hepatic failure, unspecified without coma; K70.30 Alcoholic cirrhosis of liver without ascites; R53.1 Weakness; F17.210 Nicotine dependence, cigarettes, uncomplicated; F14.10 Cocaine abuse, uncomplicated; F15.10 Other stimulant abuse, uncomplicated; I10 Essential (primary) hypertension; Z79.899 Other long term (current) drug therapy; Z59.0 Homelessness; W01.0XXA Fall on same level from slipping, tripping and stumbling without subsequent striking against object, initial encounter; Y93.89 Activity, other specified; Y92.89 Other specified places as the place of occurrence of the external cause; Y99.8 Other external cause status
CPT/HCPCS: 36415; 70450; 70486; 71045; 72125; 80053; 80307; 81003; 82140; 82550; 82553; 82962; 83880; 84484; 85025; 85610; 85730; 93005; 99285; G0480

== ENCOUNTER 2017-12-20 21:43 | Inpatient (IN) | payer OTHER ==
[~2017-12-20] VITALS: Ht 175.3 cm; Wt 87.4 kg
[~2017-12-20 21:43] MED LIST changes: +AMLO2.5T3 PO; +CHOL50004 PO; +CLON0.1T PO; -ESOM20CA31 PO; +LISI-660 PO; +OXYC10 PO; +PHYT5 PO; -PROP10TA73 PO; +RIFAX550 PO; +SPIR25 PO
[2017-12-20 22:13] LABS: GLUCOSE,POINT OF CARE 73 MG/DL (70-110)
[2017-12-20 23:12] LABS: BASOPHILS % (AUTO) 1.2 % (0.0-2.0); HEMATOCRIT 34.4 % (41-53); HEMOGLOBIN 11.5 g/dL (13.5-17.5); LYMPHOCYTES # (AUTO) 2.3 K/uL (1.0-4.8); LYMPHOCYTES % (AUTO) 41.3 % (22.0-44.0); MEAN CORPUSCULAR HEMOGLOBIN 30.1 pg (26.0-34.0); MEAN CORPUSCULAR HGB CONC 33.5 G/dL (31.0-37.0); MEAN CORPUSCULAR VOLUME 90 fL (80-100); MONOCYTES # (AUTO) 0.7 K/uL (0.1-1.0); NEUTROPHILS # (AUTO) 2.3 K/uL (1.8-7.7); NEUTROPHILS % (AUTO) 41.5 % (40.0-70.0); RED BLOOD CELL COUNT(AUTO) 3.83 MIL/uL (4.50-5.90)
[2017-12-20 23:22] LABS: INR 1.6 (0.9-1.1); PROTHROMBIN TIME 16.1 SEC (9.4-11.6)
[2017-12-20] MEDS ORDERED: BISACODYL 10 MG RECTAL RECTAL SUPPOSITORY PR PRN (23:30)
[2017-12-20] MEDS ORDERED: ZOLPIDEM TARTRATE 5 MG TABLET PO PRN (23:30)
[2017-12-20] MEDS ORDERED: HydrALAZINE HCL 20 MG/ML VIAL IVP PRN (23:30)
[2017-12-20] MEDS ORDERED: ONDANSETRON HCL 4 MG/2 ML VIAL IVP PRN (23:30)
[2017-12-20] MEDS ORDERED: ACETAMINOPHEN 325 MG TABLET PO PRN (23:30)
[2017-12-20] MEDS ORDERED: MAGNESIUM HYDROXIDE SUSPENSION 30 ML UDCUP PO PRN (23:30)
[2017-12-20 23:34] LABS: ANION GAP 6 mmol/L (8-16); CALCIUM, TOTAL 7.5 mg/dL (8.8-10.5); CARBON DIOXIDE 23 mmol/L (22-29); CHLORIDE 111 mmol/L (98-107); CREATININE 1.12 mg/dL (0.60-1.30); GLOMERULAR FILTR. RATE CALC > 60 mL/min (>60); GLUCOSE,RANDOM 96 mg/dL (70-110); POTASSIUM 3.4 mmol/L (3.5-5.1); SODIUM SERUM 140 mmol/L (136-145); UREA NITROGEN, BLOOD 7 mg/dL (7-18)
[2017-12-20 23:39] LABS: ALANINE AMINOTRANSFERASE 63 U/L (12-78); ALBUMIN 1.8 g/dL (3.4-5.0); ALKALINE PHOSPHATASE 217 U/L (46-116); ASPARTATE AMINOTRANSFERASE 99 U/L (15-37); BILIRUBIN,TOTAL 2.4 mg/dL (0.1-1.0); TOTAL PROTEIN, SERUM 5.5 g/dL (6.4-8.2)
[2017-12-20 23:43] LABS: PLATELET COUNT (AUTO) 94 K/uL (150-450)
[2017-12-20 23:44] LABS: PLATELET MORPHOLOGY COMMENT GIANT PLTS PRESENT
[2017-12-21] VITALS (7 sets, daily range): BP systolic 118–176; BP diastolic 67–102
[2017-12-21] MEDS: HEPARIN SODIUM,PORCINE 5,000 UNITS/ML VIAL SQ SCH ×4 (00:20→23:44)
[2017-12-21] MEDS ORDERED: LACTULOSE 20 GM/30 ML SOLUTION UDCUP PO ONE (00:30)
[2017-12-21] MEDS ORDERED: PNEUMOCOCCAL VACCINE POLYVALENT 0.5 ML VIAL [PPSV23] IM ONE (06:45)
[2017-12-21] MEDS: LISINOPRIL 5 MG TABLET PO SCH (08:43)
[2017-12-21] MEDS: SPIRONOLACTONE 25 MG TABLET PO SCH (08:44)
[2017-12-21] MEDS: PANTOPRAZOLE SODIUM 40 MG DR TABLET PO SCH (08:44)
[2017-12-21] MEDS: CloNIDine HCL 0.1 MG TABLET PO SCH ×3 (08:44→20:17)
[2017-12-21] MEDS: FUROSEMIDE 40 MG TABLET PO SCH (08:44)
[2017-12-21] MEDS: DOCUSATE SODIUM 100 MG CAPSULE PO SCH ×2 (08:44→20:17)
[2017-12-21] MEDS: AmLODIPine BESYLATE 2.5 MG TABLET PO SCH (08:45)
[2017-12-21] MEDS: RIFAXIMIN 550 MG TABLET PO SCH ×2 (08:45→20:17)
[2017-12-21] MEDS: CHOLECALCIFEROL (VIT D3) 5,000 UNITS CAPSULE PO SCH (08:45)
[2017-12-21] MEDS ORDERED: PHYTONADIONE 5 MG PO SCH (09:00)
[2017-12-21 10:20] LABS: ANION GAP 5 mmol/L (8-16); CALCIUM, TOTAL 7.2 mg/dL (8.8-10.5); CARBON DIOXIDE 23 mmol/L (22-29); CHLORIDE 113 mmol/L (98-107); CREATININE 0.82 mg/dL (0.60-1.30); GLOMERULAR FILTR. RATE CALC > 60 mL/min (>60); GLUCOSE,RANDOM 101 mg/dL (70-110); POTASSIUM 3.6 mmol/L (3.5-5.1); SODIUM SERUM 141 mmol/L (136-145); UREA NITROGEN, BLOOD 6 mg/dL (7-18)
[2017-12-21] MEDS: PHYTONADIONE 10 MG/1 ML AMP PO SCH (10:24)
[2017-12-21 12:24] LABS: APPEARANCE,URINE CLOUDY (CLEAR); BILIRUBIN,URINE NEGATIVE (NEGATIVE); GLUCOSE, URINE (UA) NEGATIVE (NEGATIVE); KETONES,URINE NEGATIVE (NEGATIVE); LEUKOCYTE ESTERASE ,URINE NEGATIVE (NEGATIVE); NITRATE,URINE NEGATIVE (NEGATIVE); OCCULT BLOOD,URINE NEGATIVE (NEGATIVE); PH,URINE 6.5 (5.0-8.0); PROTEIN,URINE NEGATIVE (NEGATIVE)
[2017-12-21 12:30] LABS: AMPHET/METH SCREEN,URINE POSITIVE (NEGATIVE); BARBITURATE SCREEN, URINE NEGATIVE (NEGATIVE); BENZODIAZEPINES SCREEN,URINE NEGATIVE (NEGATIVE); CANNABINOID SCREEN,URINE NEGATIVE (NEGATIVE); COCAINE SCREEN,URINE NEGATIVE (NEGATIVE); METHADONE SCREEN, URINE NEGATIVE (NEGATIVE); OPIATE SCREEN,URINE NEGATIVE (NEGATIVE)
[2017-12-21 12:31] LABS: PHENCYCLIDINE SCREEN,URINE NEGATIVE (NEGATIVE)
[2017-12-21 12:33] LABS: AMORPHOUS SEDIMENT,UR Many /LPF (None Seen); BACTERIA,URINE None Seen /HPF (None Seen); RBC,URINE 0-2 /HPF (0-2); WBC,URINE 0-2 /HPF (0-5)
[2017-12-21] MEDS: IBUPROFEN 400 MG TABLET PO PRN (15:01)
[2017-12-21] MEDS ORDERED: LACTULOSE 200 GM/300 ML RECTAL SOLUTION PR SCH (23:40)
[2017-12-22 04:45] VITALS: BP 114/67
[2017-12-22 07:30] VITALS: BP 134/82
[2017-12-22] MEDS: PANTOPRAZOLE SODIUM 40 MG DR TABLET PO SCH (08:05)
[2017-12-22] MEDS: FUROSEMIDE 40 MG TABLET PO SCH (08:05)
[2017-12-22] MEDS: CloNIDine HCL 0.1 MG TABLET PO SCH ×3 (08:06→20:52)
[2017-12-22] MEDS: HEPARIN SODIUM,PORCINE 5,000 UNITS/ML VIAL SQ SCH ×3 (08:06→23:56)
[2017-12-22] MEDS: SPIRONOLACTONE 25 MG TABLET PO SCH (08:06)
[2017-12-22] MEDS: DOCUSATE SODIUM 100 MG CAPSULE PO SCH ×2 (08:07→20:52)
[2017-12-22] MEDS: CHOLECALCIFEROL (VIT D3) 5,000 UNITS CAPSULE PO SCH (08:08)
[2017-12-22] MEDS: RIFAXIMIN 550 MG TABLET PO SCH ×2 (08:09→20:52)
[2017-12-22] MEDS: PHYTONADIONE 10 MG/1 ML AMP PO SCH (08:09)
[2017-12-22] MEDS: AmLODIPine BESYLATE 2.5 MG TABLET PO SCH (08:10)
[2017-12-22] MEDS: LISINOPRIL 5 MG TABLET PO SCH (08:12)
[2017-12-22] MEDS ORDERED: LACTULOSE 20 GM/30 ML SOLUTION UDCUP PO PRN (08:15)
[2017-12-22 11:11] VITALS: BP 134/82
[2017-12-22] MEDS ORDERED: LACTULOSE 20 GM/30 ML SOLUTION UDCUP PO ONE (11:15)
[2017-12-22 15:59] VITALS: BP 138/94
[2017-12-22 19:28] VITALS: BP 158/97
[2017-12-22] MEDS: LACTULOSE 20 GM/30 ML SOLUTION UDCUP PO SCH (20:52)
[2017-12-22] MEDS ORDERED: LACTULOSE 20 GM/30 ML SOLUTION UDCUP PO SCH (21:00)
[2017-12-22 23:54] VITALS: BP 143/89
[2017-12-23 04:37] VITALS: BP 137/74
[2017-12-23 07:12] VITALS: BP 153/67
[2017-12-23] MEDS: RIFAXIMIN 550 MG TABLET PO SCH ×2 (08:00→20:32)
[2017-12-23] MEDS: LISINOPRIL 5 MG TABLET PO SCH (08:01)
[2017-12-23] MEDS: FUROSEMIDE 40 MG TABLET PO SCH (08:01)
[2017-12-23] MEDS: CHOLECALCIFEROL (VIT D3) 5,000 UNITS CAPSULE PO SCH (08:01)
[2017-12-23] MEDS: PANTOPRAZOLE SODIUM 40 MG DR TABLET PO SCH (08:02)
[2017-12-23] MEDS: AmLODIPine BESYLATE 2.5 MG TABLET PO SCH (08:02)
[2017-12-23] MEDS: SPIRONOLACTONE 25 MG TABLET PO SCH (08:03)
[2017-12-23] MEDS: LACTULOSE 20 GM/30 ML SOLUTION UDCUP PO SCH ×2 (08:03→20:32)
[2017-12-23] MEDS: CloNIDine HCL 0.1 MG TABLET PO SCH ×3 (08:03→20:33)
[2017-12-23] MEDS: PHYTONADIONE 10 MG/1 ML AMP PO SCH (08:03)
[2017-12-23] MEDS: HEPARIN SODIUM,PORCINE 5,000 UNITS/ML VIAL SQ SCH ×2 (08:04→16:56)
[2017-12-23] MEDS: DOCUSATE SODIUM 100 MG CAPSULE PO SCH ×2 (08:04→20:33)
[2017-12-23 11:46] VITALS: BP 134/87
[2017-12-23 15:18] VITALS: BP 114/67
[2017-12-23 20:07] VITALS: BP 140/85
[2017-12-23] MEDS: IBUPROFEN 400 MG TABLET PO PRN (20:35)
[2017-12-24] VITALS (7 sets, daily range): BP systolic 99–143; BP diastolic 49–84
[2017-12-24 06:49] LABS: ANION GAP 4 mmol/L (8-16); CALCIUM, TOTAL 7.2 mg/dL (8.8-10.5); CARBON DIOXIDE 24 mmol/L (22-29); CHLORIDE 109 mmol/L (98-107); CREATININE 1.03 mg/dL (0.60-1.30); GLOMERULAR FILTR. RATE CALC > 60 mL/min (>60); GLUCOSE,RANDOM 110 mg/dL (70-110); POTASSIUM 3.6 mmol/L (3.5-5.1); SODIUM SERUM 137 mmol/L (136-145); UREA NITROGEN, BLOOD 10 mg/dL (7-18)
[2017-12-24] MEDS: FUROSEMIDE 40 MG TABLET PO SCH (08:20)
[2017-12-24] MEDS: DOCUSATE SODIUM 100 MG CAPSULE PO SCH ×2 (08:20→20:27)
[2017-12-24] MEDS: CHOLECALCIFEROL (VIT D3) 5,000 UNITS CAPSULE PO SCH (08:20)
[2017-12-24] MEDS: AmLODIPine BESYLATE 2.5 MG TABLET PO SCH (08:20)
[2017-12-24] MEDS: LISINOPRIL 5 MG TABLET PO SCH (08:20)
[2017-12-24] MEDS: SPIRONOLACTONE 25 MG TABLET PO SCH (08:20)
[2017-12-24] MEDS: LACTULOSE 20 GM/30 ML SOLUTION UDCUP PO SCH ×4 (08:21→23:14)
[2017-12-24] MEDS: RIFAXIMIN 550 MG TABLET PO SCH ×3 (08:21→20:27)
[2017-12-24] MEDS: HEPARIN SODIUM,PORCINE 5,000 UNITS/ML VIAL SQ SCH ×4 (08:21→23:14)
[2017-12-24] MEDS: PANTOPRAZOLE SODIUM 40 MG DR TABLET PO SCH (08:21)
[2017-12-24] MEDS: CloNIDine HCL 0.1 MG TABLET PO SCH ×3 (08:21→20:34)
[2017-12-24] MEDS: PHYTONADIONE 10 MG/1 ML AMP PO SCH (08:30)
[2017-12-24] MEDS: IBUPROFEN 400 MG TABLET PO PRN (16:06)
[2017-12-24] MEDS: HYDROCODONE/ACETAMINOPHEN 5-325 MG TABLET PO PRN (17:24)
[2017-12-24] MEDS: MORPHINE SULFATE 4 MG/ML SYRINGE IVP PRN (20:28)
[2017-12-25 04:13] VITALS: BP 110/67
[2017-12-25] MEDS: HYDROCODONE/ACETAMINOPHEN 5-325 MG TABLET PO PRN (04:27)
[2017-12-25 07:17] VITALS: BP 134/73
[2017-12-25] MEDS: LACTULOSE 20 GM/30 ML SOLUTION UDCUP PO SCH ×3 (07:52→23:39)
[2017-12-25] MEDS: PHYTONADIONE 10 MG/1 ML AMP PO SCH (07:52)
[2017-12-25] MEDS: HEPARIN SODIUM,PORCINE 5,000 UNITS/ML VIAL SQ SCH ×3 (07:53→23:39)
[2017-12-25] MEDS: IBUPROFEN 400 MG TABLET PO PRN (07:54)
[2017-12-25] MEDS: CHOLECALCIFEROL (VIT D3) 5,000 UNITS CAPSULE PO SCH (07:54)
[2017-12-25] MEDS: AmLODIPine BESYLATE 2.5 MG TABLET PO SCH (07:54)
[2017-12-25] MEDS: DOCUSATE SODIUM 100 MG CAPSULE PO SCH ×2 (07:54→20:19)
[2017-12-25] MEDS: FUROSEMIDE 40 MG TABLET PO SCH (07:55)
[2017-12-25] MEDS: CloNIDine HCL 0.1 MG TABLET PO SCH ×3 (07:55→20:19)
[2017-12-25] MEDS: SPIRONOLACTONE 25 MG TABLET PO SCH (07:55)
[2017-12-25] MEDS: PANTOPRAZOLE SODIUM 40 MG DR TABLET PO SCH (07:55)
[2017-12-25] MEDS: RIFAXIMIN 550 MG TABLET PO SCH ×3 (07:55→20:19)
[2017-12-25] MEDS: LISINOPRIL 5 MG TABLET PO SCH (07:55)
[2017-12-25 11:17] VITALS: BP 125/79
[2017-12-25] MEDS ORDERED: LACTULOSE 20 GM/30 ML SOLUTION UDCUP PO SCH (16:00)
[2017-12-25 16:05] VITALS: BP 145/83
[2017-12-25] MEDS: MORPHINE SULFATE 4 MG/ML SYRINGE IVP PRN (16:32)
[2017-12-25 19:30] VITALS: BP 141/80
[2017-12-25 23:30] VITALS: BP 139/81
[2017-12-26 03:15] VITALS: BP 134/78
[2017-12-26 07:43] VITALS: BP 126/76
[2017-12-26] MEDS: HEPARIN SODIUM,PORCINE 5,000 UNITS/ML VIAL SQ SCH (08:10)
[2017-12-26] MEDS: LACTULOSE 20 GM/30 ML SOLUTION UDCUP PO SCH (08:10)
[2017-12-26] MEDS: AmLODIPine BESYLATE 2.5 MG TABLET PO SCH (08:11)
[2017-12-26] MEDS: PANTOPRAZOLE SODIUM 40 MG DR TABLET PO SCH (08:11)
[2017-12-26] MEDS: CloNIDine HCL 0.1 MG TABLET PO SCH (08:11)
[2017-12-26] MEDS: SPIRONOLACTONE 25 MG TABLET PO SCH (08:11)
[2017-12-26] MEDS: DOCUSATE SODIUM 100 MG CAPSULE PO SCH (08:11)
[2017-12-26] MEDS: FUROSEMIDE 40 MG TABLET PO SCH (08:11)
[2017-12-26] MEDS: HYDROCODONE/ACETAMINOPHEN 5-325 MG TABLET PO PRN (08:11)
[2017-12-26] MEDS: CHOLECALCIFEROL (VIT D3) 5,000 UNITS CAPSULE PO SCH (08:11)
[2017-12-26] MEDS: LISINOPRIL 5 MG TABLET PO SCH (08:11)
[2017-12-26] MEDS: RIFAXIMIN 550 MG TABLET PO SCH (08:15)
[2017-12-26] MEDS: PHYTONADIONE 10 MG/1 ML AMP PO SCH (08:23)
[2017-12-26 11:00] VITALS: BP 122/71
[2017-12-26 15:06] VITALS: BP 122/68
== END 2017-12-26 15:15 | disposition home or self-care (01) | DRG 279 ==
LOC: EMS 21:44 → 5S 23:00 → 6N 12-25 15:50
PROVIDERS: ADMIT Internal Medicine; ATTEND Internal Medicine
DX: K72.00 Acute and subacute hepatic failure without coma (principal); G93.41 Metabolic encephalopathy; E44.0 Moderate protein-calorie malnutrition; K74.60 Unspecified cirrhosis of liver; D64.9 Anemia, unspecified; I10 Essential (primary) hypertension; F17.200 Nicotine dependence, unspecified, uncomplicated; F10.10 Alcohol abuse, uncomplicated; Z91.19 Patient's noncompliance with other medical treatment and regimen; Z28.21 Immunization not carried out because of patient refusal; Z68.28 Body mass index [BMI] 28.0-28.9, adult
CPT/HCPCS: 70450; 90686; 90732; 93005; G0378; J0360; J1644; J2270; J3430

== ENCOUNTER 2018-01-03 14:38 | Inpatient (IN) | payer OTHER ==
[~2018-01-03] VITALS: Ht 172.7 cm; Wt 92.2 kg
[2018-01-03 16:39] LABS: BASOPHILS % (AUTO) 2.2 % (0.0-2.0); EOSINOPHILS % (AUTO) 7.1 % (1.0-6.0); HEMATOCRIT 28.7 % (41-53); HEMOGLOBIN 9.6 g/dL (13.5-17.5); LYMPHOCYTES # (AUTO) 1.3 K/uL (1.0-4.8); LYMPHOCYTES % (AUTO) 36.1 % (22.0-44.0); MEAN CORPUSCULAR HEMOGLOBIN 30.8 pg (26.0-34.0); MEAN CORPUSCULAR HGB CONC 33.5 G/dL (31.0-37.0); MEAN CORPUSCULAR VOLUME 92 fL (80-100); MONOCYTES # (AUTO) 0.6 K/uL (0.1-1.0); MONOCYTES % (AUTO) 15.6 % (2.0-9.0); NEUTROPHILS # (AUTO) 1.4 K/uL (1.8-7.7); RED BLOOD CELL COUNT(AUTO) 3.11 MIL/uL (4.50-5.90)
[2018-01-03 16:49] LABS: INR 1.5 (0.9-1.1); PROTHROMBIN TIME 15.2 SEC (9.4-11.6)
[2018-01-03 16:51] LABS: ANION GAP 7 mmol/L (8-16); CALCIUM, TOTAL 7.3 mg/dL (8.8-10.5); CARBON DIOXIDE 23 mmol/L (22-29); CHLORIDE 110 mmol/L (98-107); CREATININE 0.79 mg/dL (0.60-1.30); GLOMERULAR FILTR. RATE CALC > 60 mL/min (>60); GLUCOSE,RANDOM 103 mg/dL (70-110); POTASSIUM 3.5 mmol/L (3.5-5.1); SODIUM SERUM 140 mmol/L (136-145); UREA NITROGEN, BLOOD 8 mg/dL (7-18)
[2018-01-03 16:55] LABS: TROPONIN I 0.05 ng/mL (0.00-0.05)
[2018-01-03 16:56] LABS: ALANINE AMINOTRANSFERASE 60 U/L (12-78); ALBUMIN 1.3 g/dL (3.4-5.0); ALKALINE PHOSPHATASE 195 U/L (46-116); ASPARTATE AMINOTRANSFERASE 105 U/L (15-37); BILIRUBIN,TOTAL 1.5 mg/dL (0.1-1.0); LIPASE 239 U/L (73-393); TOTAL PROTEIN, SERUM 4.3 g/dL (6.4-8.2)
[2018-01-03 16:57] LABS: LACTIC ACID 1.9 mmol/L (0.4-2.0)
[2018-01-03 16:58] LABS: B-TYPE NATRIURETIC PEPTIDE 82 pg/mL (0-100)
[2018-01-03 16:59] LABS: PLATELET COUNT (AUTO) 85 K/uL (150-450)
[2018-01-03] MEDS ORDERED: ONDANSETRON HCL 4 MG/2 ML VIAL IVP PRN ×2 (17:15→22:30)
[2018-01-03] MEDS ORDERED: FUROSEMIDE 40 MG/4 ML VIAL IVP ONE (17:15)
[2018-01-03] MEDS ORDERED: SPIRONOLACTONE 25 MG TABLET PO ONE (17:15)
[2018-01-03] MEDS ORDERED: ACETAMINOPHEN 325 MG TABLET PO PRN ×2 (17:15→22:30)
[2018-01-03] MEDS ORDERED: 0.9% SODIUM CHLORIDE 10 ML SYRINGE IVP PRN (17:15)
[2018-01-03] MEDS ORDERED: LACTULOSE 20 GM/30 ML SOLUTION UDCUP PO ONE (21:00)
[2018-01-03 21:54] VITALS: BP 156/91
[2018-01-03] MEDS ORDERED: ZOLPIDEM TARTRATE 5 MG TABLET PO PRN (22:30)
[2018-01-03] MEDS ORDERED: MAGNESIUM HYDROXIDE SUSPENSION 30 ML UDCUP PO PRN (22:30)
[2018-01-03] MEDS ORDERED: BISACODYL 10 MG RECTAL RECTAL SUPPOSITORY PR PRN (22:30)
[2018-01-03] MEDS: CloNIDine HCL 0.1 MG TABLET PO SCH (22:56)
[2018-01-03 23:16] VITALS: BP 137/83
[2018-01-04 04:15] VITALS: BP 136/80
[2018-01-04 07:40] VITALS: BP 114/78
[2018-01-04] MEDS: LACTULOSE 20 GM/30 ML SOLUTION UDCUP PO SCH ×3 (08:21→20:34)
[2018-01-04] MEDS: DOCUSATE SODIUM 100 MG CAPSULE PO SCH ×2 (08:22→20:33)
[2018-01-04] MEDS: RIFAXIMIN 550 MG TABLET PO SCH ×2 (08:22→20:33)
[2018-01-04] MEDS: FUROSEMIDE 40 MG TABLET PO SCH (08:22)
[2018-01-04] MEDS: CloNIDine HCL 0.1 MG TABLET PO SCH ×3 (08:22→20:33)
[2018-01-04] MEDS: CHOLECALCIFEROL (VIT D3) 5,000 UNITS CAPSULE PO SCH (08:22)
[2018-01-04] MEDS: SPIRONOLACTONE 25 MG TABLET PO SCH (08:22)
[2018-01-04] MEDS: AmLODIPine BESYLATE 2.5 MG TABLET PO SCH (08:22)
[2018-01-04] MEDS: PANTOPRAZOLE SODIUM 40 MG DR TABLET PO SCH (08:22)
[2018-01-04] MEDS: LISINOPRIL 5 MG TABLET PO SCH (08:22)
[2018-01-04] MEDS: HEPARIN SODIUM,PORCINE 5,000 UNITS/ML VIAL SQ SCH ×3 (08:23→16:17)
[2018-01-04] MEDS: HYDROCODONE/ACETAMINOPHEN 5-325 MG TABLET PO PRN ×2 (08:29→20:38)
[2018-01-04 12:00] VITALS: BP 126/96
[2018-01-04] MEDS: PHYTONADIONE 10 MG/1 ML AMP PO SCH (14:38)
[2018-01-04 16:05] VITALS: BP 143/76
[2018-01-04 19:39] VITALS: BP 134/77
[2018-01-05] VITALS (7 sets, daily range): BP systolic 106–135; BP diastolic 64–95
[2018-01-05] MEDS: HEPARIN SODIUM,PORCINE 5,000 UNITS/ML VIAL SQ SCH ×4 (00:14→23:48)
[2018-01-05] MEDS: HYDROCODONE/ACETAMINOPHEN 5-325 MG TABLET PO PRN ×2 (04:18→08:33)
[2018-01-05] MEDS: LACTULOSE 20 GM/30 ML SOLUTION UDCUP PO SCH ×3 (08:33→20:07)
[2018-01-05] MEDS: FUROSEMIDE 40 MG TABLET PO SCH (08:33)
[2018-01-05] MEDS: SPIRONOLACTONE 25 MG TABLET PO SCH (08:33)
[2018-01-05] MEDS: CloNIDine HCL 0.1 MG TABLET PO SCH ×3 (08:33→20:07)
[2018-01-05] MEDS: DOCUSATE SODIUM 100 MG CAPSULE PO SCH ×2 (08:33→20:07)
[2018-01-05] MEDS: PANTOPRAZOLE SODIUM 40 MG DR TABLET PO SCH (08:33)
[2018-01-05] MEDS: LISINOPRIL 5 MG TABLET PO SCH (08:33)
[2018-01-05] MEDS: RIFAXIMIN 550 MG TABLET PO SCH ×2 (08:34→20:07)
[2018-01-05] MEDS: CHOLECALCIFEROL (VIT D3) 5,000 UNITS CAPSULE PO SCH (08:34)
[2018-01-05] MEDS: AmLODIPine BESYLATE 2.5 MG TABLET PO SCH (08:34)
[2018-01-05] MEDS: PHYTONADIONE 10 MG/1 ML AMP PO SCH (08:42)
[2018-01-05] MEDS: MORPHINE SULFATE 4 MG/ML SYRINGE IVP PRN ×2 (15:57→20:08)
[2018-01-05] MEDS: FUROSEMIDE 40 MG/4 ML VIAL IVP SCH (20:07)
[2018-01-06 04:00] VITALS: BP 132/72
[2018-01-06 08:19] VITALS: BP 125/80
[2018-01-06] MEDS: RIFAXIMIN 550 MG TABLET PO SCH ×2 (08:33→20:50)
[2018-01-06] MEDS: LISINOPRIL 5 MG TABLET PO SCH (08:33)
[2018-01-06] MEDS: CHOLECALCIFEROL (VIT D3) 5,000 UNITS CAPSULE PO SCH (08:33)
[2018-01-06] MEDS: HEPARIN SODIUM,PORCINE 5,000 UNITS/ML VIAL SQ SCH ×3 (08:33→23:54)
[2018-01-06] MEDS: FUROSEMIDE 40 MG/4 ML VIAL IVP SCH (08:34)
[2018-01-06] MEDS: CloNIDine HCL 0.1 MG TABLET PO SCH ×3 (08:34→20:50)
[2018-01-06] MEDS: DOCUSATE SODIUM 100 MG CAPSULE PO SCH ×2 (08:34→20:50)
[2018-01-06] MEDS: AmLODIPine BESYLATE 2.5 MG TABLET PO SCH (08:34)
[2018-01-06] MEDS: PHYTONADIONE 10 MG/1 ML AMP PO SCH ×2 (08:34→09:00)
[2018-01-06] MEDS: SPIRONOLACTONE 25 MG TABLET PO SCH (08:34)
[2018-01-06] MEDS: PANTOPRAZOLE SODIUM 40 MG DR TABLET PO SCH (08:35)
[2018-01-06] MEDS: LACTULOSE 20 GM/30 ML SOLUTION UDCUP PO SCH ×3 (08:50→20:50)
[2018-01-06 11:18] VITALS: BP 114/71
[2018-01-06 15:42] VITALS: BP 122/72
[2018-01-06] MEDS: FUROSEMIDE 40 MG TABLET PO SCH ×2 (16:00→20:50)
[2018-01-06 20:49] VITALS: BP 132/79
[2018-01-06] MEDS: HYDROCODONE/ACETAMINOPHEN 5-325 MG TABLET PO PRN (20:50)
[2018-01-06 23:58] VITALS: BP 118/59
[2018-01-07 05:27] VITALS: BP 106/65
[2018-01-07 06:12] LABS: BASOPHILS % (AUTO) 1.2 % (0.0-2.0); EOSINOPHILS % (AUTO) 6.7 % (1.0-6.0); HEMATOCRIT 25.7 % (41-53); HEMOGLOBIN 8.8 g/dL (13.5-17.5); LYMPHOCYTES # (AUTO) 1.6 K/uL (1.0-4.8); LYMPHOCYTES % (AUTO) 38.4 % (22.0-44.0); MEAN CORPUSCULAR HEMOGLOBIN 31.2 pg (26.0-34.0); MEAN CORPUSCULAR HGB CONC 34.2 G/dL (31.0-37.0); MEAN CORPUSCULAR VOLUME 91 fL (80-100); MONOCYTES # (AUTO) 0.5 K/uL (0.1-1.0); NEUTROPHILS # (AUTO) 1.8 K/uL (1.8-7.7); NEUTROPHILS % (AUTO) 42.7 % (40.0-70.0); PLATELET COUNT (AUTO) 67 K/uL (150-450); RED BLOOD CELL COUNT(AUTO) 2.83 MIL/uL (4.50-5.90); RED CELL DISTRIBUTION WIDTH 20.9 % (11.5-14.5)
[2018-01-07 06:16] LABS: ANION GAP 5 mmol/L (8-16); CARBON DIOXIDE 24 mmol/L (22-29); CHLORIDE 110 mmol/L (98-107); CREATININE 0.91 mg/dL (0.60-1.30); GLOMERULAR FILTR. RATE CALC > 60 mL/min (>60); GLUCOSE,RANDOM 111 mg/dL (70-110); POTASSIUM 3.6 mmol/L (3.5-5.1); SODIUM SERUM 139 mmol/L (136-145); UREA NITROGEN, BLOOD 9 mg/dL (7-18)
[2018-01-07 07:42] VITALS: BP 104/60
[2018-01-07] MEDS: CloNIDine HCL 0.1 MG TABLET PO SCH (09:21)
[2018-01-07] MEDS: LACTULOSE 20 GM/30 ML SOLUTION UDCUP PO SCH ×2 (09:21→16:20)
[2018-01-07] MEDS: FUROSEMIDE 40 MG TABLET PO SCH ×2 (09:21→16:20)
[2018-01-07] MEDS: HEPARIN SODIUM,PORCINE 5,000 UNITS/ML VIAL SQ SCH ×2 (09:21→16:00)
[2018-01-07] MEDS: PANTOPRAZOLE SODIUM 40 MG DR TABLET PO SCH (09:22)
[2018-01-07] MEDS: AmLODIPine BESYLATE 2.5 MG TABLET PO SCH (09:22)
[2018-01-07] MEDS: SPIRONOLACTONE 25 MG TABLET PO SCH (09:22)
[2018-01-07] MEDS: RIFAXIMIN 550 MG TABLET PO SCH (09:22)
[2018-01-07] MEDS: LISINOPRIL 5 MG TABLET PO SCH (09:22)
[2018-01-07] MEDS: CHOLECALCIFEROL (VIT D3) 5,000 UNITS CAPSULE PO SCH (09:23)
[2018-01-07] MEDS: DOCUSATE SODIUM 100 MG CAPSULE PO SCH (09:23)
[2018-01-07] MEDS: PHYTONADIONE 10 MG/1 ML AMP PO SCH (09:30)
[2018-01-07] MEDS: HYDROCODONE/ACETAMINOPHEN 5-325 MG TABLET PO PRN (09:33)
[2018-01-07 12:11] VITALS: BP 101/53
== END 2018-01-07 17:05 | disposition home or self-care (01) | DRG 279 ==
LOC: EMS 14:40 → 6N 18:09
PROVIDERS: ADMIT Internal Medicine; ATTEND Internal Medicine
DX: K72.90 Hepatic failure, unspecified without coma (principal); D61.818 Other pancytopenia; D68.9 Coagulation defect, unspecified; R18.8 Other ascites; E88.09 Other disorders of plasma-protein metabolism, not elsewhere classified; F17.210 Nicotine dependence, cigarettes, uncomplicated; F10.21 Alcohol dependence, in remission; F14.90 Cocaine use, unspecified, uncomplicated; F19.10 Other psychoactive substance abuse, uncomplicated; I10 Essential (primary) hypertension; F15.10 Other stimulant abuse, uncomplicated; Z91.19 Patient's noncompliance with other medical treatment and regimen; B19.20 Unspecified viral hepatitis C without hepatic coma; K74.60 Unspecified cirrhosis of liver; Z59.0 Homelessness; Z28.21 Immunization not carried out because of patient refusal
CPT/HCPCS: 76700; 83605; 87081; 93005; G0378; G0480; J1644; J1940; J2270; J3430